=== PATIENT | female | born 1945 | race Caucasian/White ===

== ENCOUNTER 2017-10-23 16:02 | Inpatient (IN) | payer MEDICARE, BC, OTHER ==
[2017-10-23] MEDS: IPRATROPIUM (NEB) 0.5 MG/2.5 ML AMP NEB (16:18)
[2017-10-23] MEDS: ALBUTEROL 0.083% (NEB) 2.5 MG/3 ML AMP NEB (16:18)
[2017-10-23 16:28] LABS: WHITE BLOOD COUNT 11.3 10^3/ul (4.8-10.8)
[2017-10-23 16:28] LABS: ABNORMAL IP MESSAGE 1; HEMATOCRIT 40.5 % (37.0-47.0); MEAN CORPUSCULAR HEMOGLOBIN 20.2 pg (29.0-33.0); MEAN CORPUSCULAR HGB CONC 29.6 g/dl (32.0-37.0); MEAN CORPUSCULAR VOLUME 68.3 fl (82.0-101.0); MEAN PLATELET VOLUME 11.5 fl (7.4-10.4); MODE NASAL CANNULA; MetHgb Venous 0.1 %; PLATELET COUNT 333 10^3/UL (140-415); RED BLOOD COUNT 5.93 10^6/ul (4.20-5.40); RED CELL DISTRIBUTION WIDTH 17.7 % (11.5-14.5); Sample Type Blood venous; Site VENOUS LINE; Venous COHb 0.5 %; Venous Fraction OxyHgb 49.9 %; Venous Oxygen Sat 50.2 mmHG (55.0-75.0); Venous Total Hemglobin 12.1 g/dl
[2017-10-23 16:35] LABS: ADD MAN DIFF? YES; POSITIVE DIFF @See below
[2017-10-23 16:45] LABS: INR 0.97
[2017-10-23 16:46] LABS: PARTIAL THROMBOPLASTIN TIME 33.4 Sec (25.0-35.0)
[2017-10-23 16:49] LABS: ALANINE AMINOTRANSFERASE 41 IU/L (13-69); ALBUMIN/GLOBULIN RATIO 1.08; ALKALINE PHOSPHATASE 70 IU/L (42-121); ANION GAP 17 (8-16); ASPARTATE AMINO TRANSFERASE 25 IU/L (15-46); BLOOD UREA NITROGEN 19 mg/dl (7-20); CALCIUM 9.4 mg/dl (8.4-10.2); CARBON DIOXIDE 27 mmol/L (21-31); CHLORIDE 98 mmol/L (97-110); CREATININE 1.57 mg/dl (0.44-1.00); POTASSIUM 4.2 mmol/L (3.5-5.1); SODIUM 138 mmol/L (135-144); TOTAL PROTEIN 7.7 g/dl (6.1-8.1)
[2017-10-23 16:50] LABS: GLUCOSE 475 mg/dl (70-220)
[2017-10-23 16:50] LABS: LACTIC ACID 3.4 mmol/L (0.5-2.0)
[2017-10-23] MEDS: SOD CHLORIDE 0.9% 1,000 ML IV (16:53)
[2017-10-23 17:00] LABS: B-TYPE NATRIURETIC PEPTIDE 75 PG/ML (0-125)
[2017-10-23 17:01] LABS: ANISOCYTOSIS 2+ (0-0); LYMPHOCYTES #M 5.1 10^3/ul (0.8-2.9); LYMPHOCYTES % (M) 46 % (15-51); MICROCYTOSIS 2+ (0-0); MONOCYTE #M 0.3 10^3/ul (0.3-0.9); MONOCYTES % (M) 3 % (0-11); PLATELET ESTIMATE NORMAL; POIKILOCYTOSIS 1+ (0-0); POLYCHROMASIA 1+ (0-0); REACTIVE LYMPHOCYTES #M 0.7 10^3/ul (0.0-0.0); REACTIVE LYMPHOCYTES% (M) 7 % (0-0); SEGMENTED NEUTROPHILS (M) % 44 % (39-77); SMUDGE%M 2 % (0-0)
[2017-10-23] MEDS: SODIUM CHLORIDE 0.9% 1L BAG IV* (17:02)
[2017-10-23] MEDS: LEVOFLOXACIN 500MG/D5W (PMX) 100 ML IVPB (17:03)
[2017-10-23 17:08] LABS: TROPONIN-I < 0.012 ng/ml (0.00-0.12)
[2017-10-23] MEDS: INSULIN LISPRO 100 UNIT/ML VIAL SC (17:18)
[2017-10-23] MEDS: morphine 4 MG/ML VIAL IV (17:57)
[2017-10-23] MEDS: ONDANSETRON 4 MG INJ IV (17:58)
[2017-10-23] MEDS: ACETAMINOPHEN 325 MG TAB PO (18:02)
[2017-10-23] MEDS ORDERED: DIPHENHYDRAMINE 50 MG INJ (19:49)
[2017-10-23] MEDS ORDERED: ONDANSETRON 4 MG INJ IV (20:00)
[2017-10-23] MEDS ORDERED: DIPHENHYDRAMINE 50 MG INJ IV (20:00)
[2017-10-23] MEDS ORDERED: ACETAMINOPHEN 325 MG TAB PO (20:00)
[2017-10-23] MEDS: DIPHENHYDRAMINE 50 MG INJ IV (20:07)
[2017-10-23] MEDS ORDERED: BISACODYL (EC) 5 MG TAB PO (22:00)
[2017-10-23] MEDS ORDERED: DOCUSATE SODIUM 100 MG CAP PO (22:00)
[2017-10-23] MEDS ORDERED: NACL 0.9% 3 ML SYG IV (22:00)
[2017-10-23] MEDS ORDERED: GLUCAGON 1 MG INJ IM (22:30)
[2017-10-23] MEDS ORDERED: GLUCOSE GEL 15 GRAM TUBE PO ×2 (22:30)
[2017-10-23] MEDS ORDERED: DEXTROSE 50% 50 ML SYRINGE IV ×2 (22:30)
[2017-10-23] MEDS ORDERED: GLUCOSE GEL 15 GRAM TUBE BUCCAL (22:30)
[2017-10-23 22:57] LABS: LACTIC ACID 1.9 mmol/L (0.5-2.0)
[2017-10-24] MEDS: LEVOFLOXACIN 250MG/D5W (PMX) 50 ML IVPB (00:24)
[2017-10-24] MEDS: ZOLPIDEM 5 MG TAB PO (00:25)
[2017-10-24] MEDS: DILTIAZEM 30 MG TAB PO ×3 (00:40→21:30)
[2017-10-24] MEDS: INSULIN ASPART [NOVOLOG] 3 ML PEN SC ×6 (01:25→21:33)
[2017-10-24] MEDS: ACCU-CHEK XX (02:00)
[2017-10-24 06:15] LABS: ADD MAN DIFF? NO
[2017-10-24 06:23] LABS: WHITE BLOOD COUNT 8.9 10^3/ul (4.8-10.8)
[2017-10-24 06:23] LABS: ABNORMAL IP MESSAGE 1; BASOPHILS % 0.2 % (0.0-2.0); EOSINOPHILS # 0.1 10^3/ul (0.0-0.5); EOSINOPHILS % 1.6 % (0.0-7.0); HEMATOCRIT 34.4 % (37.0-47.0); HEMOGLOBIN 10.2 g/dl (12.0-16.0); LYMPHOCYTES # 3.6 10^3/ul (0.8-2.9); MEAN CORPUSCULAR HEMOGLOBIN 20.4 pg (29.0-33.0); MEAN CORPUSCULAR HGB CONC 29.7 g/dl (32.0-37.0); MEAN CORPUSCULAR VOLUME 68.7 fl (82.0-101.0); MEAN PLATELET VOLUME 10.7 fl (7.4-10.4); MONOCYTE # 0.8 10^3/ul (0.3-0.9); MONOCYTES % 8.7 % (0.0-11.0); NEUTROPHIL # 4.4 10^3/ul (1.6-7.5); NEUTROPHILS % 49.3 % (39.0-77.0); PLATELET COUNT 258 10^3/UL (140-415); RED BLOOD COUNT 5.01 10^6/ul (4.20-5.40); RED CELL DISTRIBUTION WIDTH 16.2 % (11.5-14.5)
[2017-10-24 06:34] LABS: POSITIVE DIFF @See below
[2017-10-24 07:07] LABS: ALANINE AMINOTRANSFERASE 33 IU/L (13-69); ALBUMIN 3.3 g/dl (3.3-4.9); ALKALINE PHOSPHATASE 51 IU/L (42-121); ANION GAP 13 (8-16); ASPARTATE AMINO TRANSFERASE 21 IU/L (15-46); BLOOD UREA NITROGEN 15 mg/dl (7-20); CALCIUM 8.4 mg/dl (8.4-10.2); CARBON DIOXIDE 27 mmol/L (21-31); CHLORIDE 105 mmol/L (97-110); CHOL/HDL RATIO 4.1 RATIO; CHOLESTEROL 150 mg/dl (100-200); GLUCOSE 125 mg/dl (70-220); HDL CHOLESTEROL 36 mg/dl (33-92); LDL CHOLESTEROL,CALCULATED 84 mg/dl; MAGNESIUM 1.6 mg/dl (1.7-2.5); POTASSIUM 3.6 mmol/L (3.5-5.1); SODIUM 141 mmol/L (135-144); TOTAL PROTEIN 6.6 g/dl (6.1-8.1); TRIGLYCERIDES 148 mg/dl (0-149)
[2017-10-24 07:33] LABS: THYROID STIMULATING HORMONE 0.887 MIU/L (0.465-4.680)
[2017-10-24 08:03] LABS: HEMOGLOBIN A1C 9.7 % (0-5.9)
[2017-10-24] MEDS ORDERED: INSULIN ASPART [NOVOLOG] 3 ML PEN SC (08:15)
[2017-10-24 08:34] LABS: B-TYPE NATRIURETIC PEPTIDE 62 PG/ML (0-125)
[2017-10-24] MEDS: GABAPENTIN 300 MG CAP PO ×3 (08:50→21:29)
[2017-10-24] MEDS: PRIMIDONE 50 MG TAB PO (08:50)
[2017-10-24] MEDS: ASPIRIN (EC) 81 MG TAB PO (08:51)
[2017-10-24] MEDS: LISINOPRIL 10 MG TAB PO (08:51)
[2017-10-24] MEDS: BACLOFEN 10 MG TAB PO (08:51)
[2017-10-24] MEDS: CLOPIDOGREL 75 MG TAB PO (08:51)
[2017-10-24] MEDS: DOCUSATE SODIUM 100 MG CAP PO (08:52)
[2017-10-24] MEDS: FUROSEMIDE 40 MG TAB PO (08:52)
[2017-10-24] MEDS: RANITIDINE 150 MG TAB PO ×2 (08:53→21:30)
[2017-10-24] MEDS: DICYCLOMINE 10 MG CAP PO (12:04)
[2017-10-24] MEDS: ALBUTEROL 0.083% (NEB) 2.5 MG/3 ML AMP HHN ×2 (12:45→21:08)
[2017-10-24] MEDS: MAGNESIUM SULFATE 2 GM/50 ML 50 ML IVPB (21:30)
[2017-10-25] MEDS: ACCU-CHEK XX (01:22)
[2017-10-25] MEDS: LEVOFLOXACIN 750 MG TABLET GTB (06:02)
[2017-10-25 06:35] LABS: ANION GAP 9 (8-16); BLOOD UREA NITROGEN 20 mg/dl (7-20); CALCIUM 8.9 mg/dl (8.4-10.2); CARBON DIOXIDE 29 mmol/L (21-31); CHLORIDE 105 mmol/L (97-110); CREATININE 1.39 mg/dl (0.44-1.00); GLUCOSE 179 mg/dl (70-220); MAGNESIUM 2.1 mg/dl (1.7-2.5); PHOSPHORUS 4.1 mg/dl (2.5-4.9); POTASSIUM 4.4 mmol/L (3.5-5.1); SODIUM 139 mmol/L (135-144)
[2017-10-25] MEDS: ACETAMINOPHEN 325 MG TAB PO (06:51)
[2017-10-25] MEDS: INSULIN ASPART [NOVOLOG] 3 ML PEN SC ×7 (08:01→21:48)
[2017-10-25] MEDS: RANITIDINE 150 MG TAB PO ×2 (08:32→21:44)
[2017-10-25] MEDS: GABAPENTIN 300 MG CAP PO ×2 (08:32→21:44)
[2017-10-25] MEDS: LISINOPRIL 10 MG TAB PO (08:32)
[2017-10-25] MEDS: DOCUSATE SODIUM 100 MG CAP PO (08:32)
[2017-10-25] MEDS: CLOPIDOGREL 75 MG TAB PO (08:33)
[2017-10-25] MEDS: ASPIRIN (EC) 81 MG TAB PO (08:33)
[2017-10-25] MEDS: DILTIAZEM 30 MG TAB PO ×2 (08:33→21:44)
[2017-10-25] MEDS: FUROSEMIDE 40 MG TAB PO (08:33)
[2017-10-25] MEDS: DICYCLOMINE 10 MG CAP PO (08:33)
[2017-10-25] MEDS: PRIMIDONE 50 MG TAB PO (08:35)
[2017-10-25] MEDS: BACLOFEN 10 MG TAB PO (08:35)
[2017-10-25] MEDS: INSULIN GLARGINE [LANtus] 3 ML PEN SC (08:41)
[2017-10-25] MEDS: ALBUTEROL 0.083% (NEB) 2.5 MG/3 ML AMP HHN ×3 (11:35→20:04)
[2017-10-25] MEDS ORDERED: CEPASTAT LOZENGE MT (14:30)
[2017-10-25] MEDS ORDERED: LEVOFLOXACIN 750MG/D5W (PMX) 150 ML IVPB (22:00)
[2017-10-25] MEDS ORDERED: ZOLPIDEM 5 MG TAB (23:58)
[2017-10-26] MEDS: ZOLPIDEM 5 MG TAB PO (00:05)
[2017-10-26] MEDS: ALBUTEROL 0.083% (NEB) 2.5 MG/3 ML AMP HHN ×6 (00:42→20:05)
[2017-10-26] MEDS: ACCU-CHEK XX (02:00)
[2017-10-26 06:18] LABS: ADD MAN DIFF? NO
[2017-10-26 06:29] LABS: BASOPHILS % 0.3 % (0.0-2.0); EOSINOPHILS # 0.1 10^3/ul (0.0-0.5); EOSINOPHILS % 1.4 % (0.0-7.0); HEMATOCRIT 36.1 % (37.0-47.0); HEMOGLOBIN 10.5 g/dl (12.0-16.0); LYMPHOCYTES # 3.3 10^3/ul (0.8-2.9); LYMPHOCYTES % 34.9 % (15.0-51.0); MEAN CORPUSCULAR HEMOGLOBIN 20.1 pg (29.0-33.0); MEAN CORPUSCULAR HGB CONC 29.1 g/dl (32.0-37.0); MEAN CORPUSCULAR VOLUME 69.2 fl (82.0-101.0); MEAN PLATELET VOLUME 11.4 fl (7.4-10.4); MONOCYTE # 0.9 10^3/ul (0.3-0.9); MONOCYTES % 9.4 % (0.0-11.0); NEUTROPHILS % 53.7 % (39.0-77.0); PLATELET COUNT 300 10^3/UL (140-415); RED BLOOD COUNT 5.22 10^6/ul (4.20-5.40); RED CELL DISTRIBUTION WIDTH 16.4 % (11.5-14.5)
[2017-10-26 06:29] LABS: WHITE BLOOD COUNT 9.3 10^3/ul (4.8-10.8)
[2017-10-26 07:08] LABS: ANION GAP 14 (8-16); BLOOD UREA NITROGEN 32 mg/dl (7-20); CALCIUM 9.6 mg/dl (8.4-10.2); CARBON DIOXIDE 27 mmol/L (21-31); CHLORIDE 102 mmol/L (97-110); GLUCOSE 282 mg/dl (70-220); POTASSIUM 4.4 mmol/L (3.5-5.1); SODIUM 139 mmol/L (135-144)
[2017-10-26] MEDS: INSULIN ASPART [NOVOLOG] 3 ML PEN SC ×8 (08:47→23:38)
[2017-10-26] MEDS: INSULIN GLARGINE [LANtus] 3 ML PEN SC ×2 (08:48→10:20)
[2017-10-26] MEDS ORDERED: INFLUENZA VIRUS VACCINE 0.5 ML (DISPENSING) IM* (09:00)
[2017-10-26] MEDS: RANITIDINE 150 MG TAB PO ×2 (09:12→22:25)
[2017-10-26] MEDS: PRIMIDONE 50 MG TAB PO (09:12)
[2017-10-26] MEDS: ASPIRIN (EC) 81 MG TAB PO (09:13)
[2017-10-26] MEDS: DOCUSATE SODIUM 100 MG CAP PO (09:13)
[2017-10-26] MEDS: DICYCLOMINE 10 MG CAP PO (09:14)
[2017-10-26] MEDS: FUROSEMIDE 40 MG TAB PO (09:14)
[2017-10-26] MEDS: GABAPENTIN 300 MG CAP PO ×2 (09:16→22:25)
[2017-10-26] MEDS: DILTIAZEM 30 MG TAB PO ×2 (09:16→22:25)
[2017-10-26] MEDS: LISINOPRIL 10 MG TAB PO (09:17)
[2017-10-26] MEDS: BACLOFEN 10 MG TAB PO (09:17)
[2017-10-26] MEDS: CLOPIDOGREL 75 MG TAB PO (09:23)
[2017-10-26] MEDS: ONDANSETRON 4 MG INJ IV ×2 (10:21→22:25)
[2017-10-26] MEDS ORDERED: TRIMETHOBENZAMIDE 100 MG/ML VIAL IM (10:30)
[2017-10-26] MEDS ORDERED: LORAZEPAM 2 MG INJ IV (10:30)
[2017-10-26] MEDS: ALBUTEROL/IPRATROPIUM (NEB) 3 ML AMP HHN (10:35)
[2017-10-26] MEDS: LEVOFLOXACIN 750MG/D5W (PMX) 150 ML IVPB (12:25)
[2017-10-26] MEDS: GUAIFENESIN 20 MG/ML 5ML CUP PO (22:25)
[2017-10-27] MEDS: ALBUTEROL 0.083% (NEB) 2.5 MG/3 ML AMP HHN ×3 (00:45→08:18)
[2017-10-27] MEDS: INSULIN ASPART [NOVOLOG] 3 ML PEN SC ×5 (01:17→17:00)
[2017-10-27] MEDS: DEXTROSE 5%-0.45% NACL 1,000 ML IV (01:20)
[2017-10-27] MEDS: LEVOFLOXACIN 750 MG TABLET GTB (05:45)
[2017-10-27 06:04] LABS: ADD MAN DIFF? NO
[2017-10-27 06:24] LABS: WHITE BLOOD COUNT 8.2 10^3/ul (4.8-10.8)
[2017-10-27 06:24] LABS: BASOPHILS % 0.4 % (0.0-2.0); EOSINOPHILS # 0.1 10^3/ul (0.0-0.5); EOSINOPHILS % 1.3 % (0.0-7.0); HEMATOCRIT 32.1 % (37.0-47.0); HEMOGLOBIN 9.4 g/dl (12.0-16.0); LYMPHOCYTES # 1.8 10^3/ul (0.8-2.9); LYMPHOCYTES % 22.1 % (15.0-51.0); MEAN CORPUSCULAR HEMOGLOBIN 20.5 pg (29.0-33.0); MEAN CORPUSCULAR HGB CONC 29.3 g/dl (32.0-37.0); MEAN CORPUSCULAR VOLUME 69.9 fl (82.0-101.0); MEAN PLATELET VOLUME 11.4 fl (7.4-10.4); MONOCYTE # 0.8 10^3/ul (0.3-0.9); MONOCYTES % 9.2 % (0.0-11.0); NEUTROPHIL # 5.5 10^3/ul (1.6-7.5); NEUTROPHILS % 66.6 % (39.0-77.0); PLATELET COUNT 300 10^3/UL (140-415); RED BLOOD COUNT 4.59 10^6/ul (4.20-5.40); RED CELL DISTRIBUTION WIDTH 16.6 % (11.5-14.5)
[2017-10-27 07:11] LABS: ANION GAP 13 (8-16); CALCIUM 8.9 mg/dl (8.4-10.2); CARBON DIOXIDE 29 mmol/L (21-31); CHLORIDE 100 mmol/L (97-110); CREATININE 1.69 mg/dl (0.44-1.00); GLUCOSE 203 mg/dl (70-220); SODIUM 137 mmol/L (135-144)
[2017-10-27 07:49] LABS: BLOOD UREA NITROGEN 41 mg/dl (7-20)
[2017-10-27] MEDS ORDERED: INSULIN GLARGINE [LANtus] 3 ML PEN SC (08:00)
[2017-10-27] MEDS: INSULIN GLARGINE [LANtus] 3 ML PEN SC (08:47)
[2017-10-27] MEDS: GABAPENTIN 300 MG CAP PO ×2 (09:00→20:37)
[2017-10-27] MEDS: PRIMIDONE 50 MG TAB PO (09:00)
[2017-10-27] MEDS: DOCUSATE SODIUM 100 MG CAP PO (09:00)
[2017-10-27] MEDS: RANITIDINE 150 MG TAB PO (09:00)
[2017-10-27] MEDS: DILTIAZEM 30 MG TAB PO ×2 (09:00→20:38)
[2017-10-27] MEDS: ASPIRIN (EC) 81 MG TAB PO (09:00)
[2017-10-27] MEDS: CLOPIDOGREL 75 MG TAB PO (09:00)
[2017-10-27] MEDS: BACLOFEN 10 MG TAB PO (09:00)
[2017-10-27] MEDS: FUROSEMIDE 40 MG TAB PO (09:00)
[2017-10-27] MEDS: DICYCLOMINE 10 MG CAP PO (09:00)
[2017-10-27] MEDS: SOD CHLORIDE 0.45% 1,000 ML IV (11:00)
[2017-10-27] MEDS ORDERED: ALBUTEROL 0.083% (NEB) 2.5 MG/3 ML AMP HHN (11:00)
[2017-10-27] MEDS: LEVOFLOXACIN 750MG/D5W (PMX) 150 ML IVPB (12:00)
[2017-10-27] MEDS ORDERED: PROPOFOL 40 ML (16:22)
[2017-10-27] MEDS: PANTOPRAZOLE 40 MG INJ IV (18:34)
[2017-10-27] MEDS ORDERED: INSULIN ASPART [NOVOLOG] 3 ML PEN SC (21:00)
[2017-10-27] MEDS: Insulin NOVOLOG SS MILD Algorithm (SS with meals and bedtime) SC (21:10)
[2017-10-27] MEDS: ALBUTEROL/IPRATROPIUM (NEB) 3 ML AMP HHN (22:10)
[2017-10-28] MEDS: SOD CHLORIDE 0.45% 1,000 ML IV ×3 (00:20→13:40)
[2017-10-28] MEDS: ACCUCHECK 2 AM XX (02:00)
[2017-10-28] MEDS: ZOLPIDEM 5 MG TAB PO (02:17)
[2017-10-28 06:05] LABS: ADD MAN DIFF? NO
[2017-10-28 06:12] LABS: BASOPHILS % 0.4 % (0.0-2.0); EOSINOPHILS # 0.1 10^3/ul (0.0-0.5); EOSINOPHILS % 1.6 % (0.0-7.0); HEMATOCRIT 32.4 % (37.0-47.0); HEMOGLOBIN 9.5 g/dl (12.0-16.0); LYMPHOCYTES % 25.8 % (15.0-51.0); MEAN CORPUSCULAR HEMOGLOBIN 20.6 pg (29.0-33.0); MEAN CORPUSCULAR HGB CONC 29.3 g/dl (32.0-37.0); MEAN CORPUSCULAR VOLUME 70.1 fl (82.0-101.0); MEAN PLATELET VOLUME 11.1 fl (7.4-10.4); MONOCYTE # 0.9 10^3/ul (0.3-0.9); MONOCYTES % 11.1 % (0.0-11.0); NEUTROPHIL # 4.7 10^3/ul (1.6-7.5); NEUTROPHILS % 60.8 % (39.0-77.0); PLATELET COUNT 267 10^3/UL (140-415); RED BLOOD COUNT 4.62 10^6/ul (4.20-5.40); RED CELL DISTRIBUTION WIDTH 16.2 % (11.5-14.5)
[2017-10-28 06:12] LABS: WHITE BLOOD COUNT 7.7 10^3/ul (4.8-10.8)
[2017-10-28] MEDS: PANTOPRAZOLE 40 MG INJ IV (06:19)
[2017-10-28 06:34] LABS: ANION GAP 13 (8-16); BLOOD UREA NITROGEN 38 mg/dl (7-20); CALCIUM 8.5 mg/dl (8.4-10.2); CARBON DIOXIDE 30 mmol/L (21-31); CHLORIDE 97 mmol/L (97-110); CREATININE 1.56 mg/dl (0.44-1.00); GLUCOSE 188 mg/dl (70-220); POTASSIUM 4.7 mmol/L (3.5-5.1); SODIUM 135 mmol/L (135-144)
[2017-10-28] MEDS: Insulin NOVOLOG SS MILD Algorithm (SS with meals and bedtime) SC ×2 (09:29→12:33)
[2017-10-28] MEDS: INSULIN GLARGINE [LANtus] 3 ML PEN SC (09:29)
[2017-10-28] MEDS: BACLOFEN 10 MG TAB PO (09:31)
[2017-10-28] MEDS: DOCUSATE SODIUM 100 MG CAP PO (09:31)
[2017-10-28] MEDS: ASPIRIN (EC) 81 MG TAB PO (09:32)
[2017-10-28] MEDS: PRIMIDONE 50 MG TAB PO (09:32)
[2017-10-28] MEDS: DICYCLOMINE 10 MG CAP PO (09:32)
[2017-10-28] MEDS: CLOPIDOGREL 75 MG TAB PO (09:32)
[2017-10-28] MEDS: GABAPENTIN 300 MG CAP PO (09:33)
[2017-10-28] MEDS: FUROSEMIDE 40 MG TAB PO (09:42)
[2017-10-28] MEDS: DILTIAZEM 30 MG TAB PO (09:43)
[2017-10-28] MEDS: LEVOFLOXACIN 750MG/D5W (PMX) 150 ML IVPB (12:28)
== END 2017-10-28 17:20 | disposition home health service (06) | DRG 194 ==
LOC: E/R 16:02 → MS2 19:35
PROC: 0DB68ZX Excision of Stomach, Via Natural or Artificial Opening Endoscopic, Diagnostic (ICD-10-PCS; principal; 2017-10-27 14:30)
DX: J18.9 Pneumonia, unspecified organism (principal); N17.9 Acute kidney failure, unspecified; Z68.42 Body mass index [BMI] 45.0-49.9, adult; E66.01 Morbid (severe) obesity due to excess calories; R13.10 Dysphagia, unspecified; K29.70 Gastritis, unspecified, without bleeding; I25.10 Atherosclerotic heart disease of native coronary artery without angina pectoris; I10 Essential (primary) hypertension; E11.9 Type 2 diabetes mellitus without complications; R11.2 Nausea with vomiting, unspecified; J06.9 Acute upper respiratory infection, unspecified; G47.30 Sleep apnea, unspecified; E03.9 Hypothyroidism, unspecified; I12.9 Hypertensive chronic kidney disease with stage 1 through stage 4 chronic kidney disease, or unspecified chronic kidney disease; N18.9 Chronic kidney disease, unspecified
CPT/HCPCS: 36415; 71045; 80048; 80053; 80061; 82803; 82962; 83036; 83605; 83735; 83880; 84100; 84443; 84484; 85025; 85610; 85730; 87040; 87400; 88305; 88312; 90686; 92610; 93005; 93306; 94640; 94664; 96374; 96375; 97163; 99285-25